=== PATIENT | female | born 1995 | race Caucasian/White ===

== ENCOUNTER 2020-12-22 14:12 | Outpatient (REF) | payer SELFPAY ==
[2020-12-25 06:52] LABS: TS Negative Control Passed; TS Panel A 0; TS Panel B 0; TS Positive Control Passed; TSpotTB Negative (Negative)
== END 2020-12-22 14:13 | disposition home or self-care (01) ==
LOC: HO.LNP 14:12
PROVIDERS: Visit Provider Physician Assistant Medical
DX: Z02.1 Encounter for pre-employment examination (principal); Z11.1 Encounter for screening for respiratory tuberculosis
CPT/HCPCS: 86481